=== PATIENT | female | born 1990 | race Caucasian/White ===

== ENCOUNTER 2021-12-23 18:34 | Emergency (ER) | payer BC | END 2021-12-23 20:08 | disposition home or self-care (01) | LOC: JP.ED 18:34 | DX: J30.1 Allergic rhinitis due to pollen (principal); H69.83 Other specified disorders of Eustachian tube, bilateral; Z91.09 Other allergy status, other than to drugs and biological substances | CPT/HCPCS: 87081; 87880-QW; 99283 ==

== ENCOUNTER 2022-07-29 19:17 | Emergency (ER) | payer BC ==
[2022-07-29] MEDS ORDERED: Lidocaine/Epineph/Tetracaine 3 ML Syringe TOP ONE (20:44)
[2022-07-29] MEDS ORDERED: Sodium Chloride 0.9% 10 ML Syringe FLUSH PRN (20:44)
[2022-07-29] MEDS ORDERED: HYDROmorphone 0.5 MG/0.5 ML Syringe IVPUSH ONE (20:45)
[2022-07-29] MEDS ORDERED: cefTRIAXone 1 GM in Sodium Chloride 0.9% 50 ML IV ONE (20:46)
[2022-07-29] MEDS ORDERED: Sodium Chloride 0.9% 1,000 ML IV SCH (21:45)
[2022-07-29] MEDS ORDERED: Meclizine 25 MG Tab PO ONE (21:52)
== END 2022-07-29 23:04 | disposition home or self-care (01) ==
LOC: JP.ED 19:17
DX: H66.91 Otitis media, unspecified, right ear (principal); L08.9 Local infection of the skin and subcutaneous tissue, unspecified; E86.0 Dehydration; Z91.09 Other allergy status, other than to drugs and biological substances
CPT/HCPCS: 96361; 96365; 96375; 99282; A9270; J0696; J1170; J3490; J7030